=== PATIENT | female | born 1950 | race Caucasian/White ===

== ENCOUNTER 2022-08-01 10:52 | Inpatient (IN) | payer MEDICAID, MEDICARE ==
[~2022-08-01] VITALS: Ht 160 cm; Wt 60.8 kg
[2022-08-01 11:02] VITALS: BP_SYST 146
[2022-08-01 11:29] LABS: BASOPHILS # (AUTO) 0.1 K/uL (0.0-0.2); BASOPHILS % (AUTO) 0.7 % (0.0-2.0); EOSINOPHILS # (AUTO) 0.2 K/uL (0.0-0.4); EOSINOPHILS % (AUTO) 1.7 % (0.0-4.0); HEMATOCRIT 34.4 % (36-48); LYMPHOCYTES # (AUTO) 1.3 K/uL (1.0-5.5); LYMPHOCYTES % (AUTO) 13.5 % (20.5-51.5); MEAN CORPUSCULAR VOLUME 84 fL (79.0-98.0); MONOCYTES # (AUTO) 0.9 K/uL (0.0-1.0); MONOCYTES % (AUTO) 9.5 % (1.7-9.3); NEUTROPHILS % (AUTO) 74.6 % (40.0-70.0); PLATELET COUNT (AUTO) 528 K/uL (130-430); RED BLOOD CELL COUNT(AUTO) 4.11 MIL/uL (4.2-6.2); WHITE BLOOD COUNT (AUTO) 9.4 K/uL (4.8-10.8)
[2022-08-01 11:52] LABS: ANION GAP 7 (5-15); CALCIUM 8.3 mg/dL (8.4-11.0); CHLORIDE 96 mmol/L (98-107); CREATININE 0.49 mg/dL (0.55-1.30); GLUCOSE 130 mg/dL (70-99); UREA NITROGEN, BLOOD 12 mg/dL (8-21)
[2022-08-01 11:56] LABS: POTASSIUM 2.9 mmol/L (3.5-5.1)
[2022-08-01] MEDS ORDERED: MVI,5VIA6 IV (11:56)
[2022-08-01] MEDS ORDERED: VITD2000 PO (11:56)
[2022-08-01] MEDS ORDERED: CILO100T PO (11:56)
[2022-08-01] MEDS ORDERED: METH-373 PO (11:56)
[2022-08-01] MEDS ORDERED: PRO40 PO (11:56)
[2022-08-01] MEDS ORDERED: CAT1PAT TD (11:56)
[2022-08-01] MEDS ORDERED: ASCO500T20 PO (11:56)
[2022-08-01] MEDS ORDERED: [UNRECOGNIZED DRUG - CODE] PO (11:56)
[2022-08-01] MEDS ORDERED: CARV12.548 PO (11:56)
[2022-08-01] MEDS ORDERED: METO25TA6 PO (11:56)
[2022-08-01] MEDS ORDERED: SSNOVOLOG SUBCUT (11:58)
[2022-08-01 12:02] LABS: ALANINE AMINOTRANSFERASE 103 U/L (12-78); ALBUMIN 2.2 g/dL (3.4-4.8); ASPARTATE AMINOTRANSFERASE 81 U/L (10-37); TOTAL BILIRUBIN 0.7 mg/dL (0.0-1.0)
[2022-08-01 12:45] LABS: ACETONE, SERUM NEGATIVE (NEGATIVE)
[2022-08-01] MEDS ORDERED: INSULIN ASPART 100 UNITS/ML, 10 ML VIAL (NovoLOG) SUBCUT PRN ×2 (14:30→15:00)
[2022-08-01] MEDS ORDERED: NACL 0.9% 1,000 ML IV ONE (14:30)
[2022-08-01] MEDS ORDERED: KCL 20 mEq in 100 mL (PREMIX) 100 ML IV ONE (14:30)
[2022-08-01] MEDS ORDERED: GLUCOSE (DEXTROSE) ORAL GEL -Adults PO PRN (15:00)
[2022-08-01] MEDS ORDERED: DEXTROSE 50%-WATER 50 ML DISP.SYRIN IVP PRN (15:00)
[2022-08-01] MEDS ORDERED: D5W 1,000 ML IV PRN (15:00)
[2022-08-01 17:43] VITALS: BP_SYST 147
[2022-08-01 19:55] VITALS: BP_SYST 128
[2022-08-01] MEDS ORDERED: KCL 20 mEq in D5/0.45NS 1000mL 1,000 ML IV ONE (22:15)
[2022-08-01] MEDS: CILOSTAZOL 50 MG TABLET (PLETAL) PO SCH (22:20)
[2022-08-01] MEDS: KCL 20 mEq in D5/0.45NS 1000mL 1,000 ML IV SCH (22:21)
[2022-08-01] MEDS: METOPROLOL TARTRATE 25 MG TABLET PO SCH (22:21)
[2022-08-02 01:11] VITALS: BP_SYST 150
[2022-08-02 08:00] VITALS: BP_SYST 117
[2022-08-02 08:50] LABS: BASOPHILS # (AUTO) 0.1 K/uL (0.0-0.2); BASOPHILS % (AUTO) 0.7 % (0.0-2.0); EOSINOPHILS # (AUTO) 0.2 K/uL (0.0-0.4); EOSINOPHILS % (AUTO) 1.9 % (0.0-4.0); HEMATOCRIT 33.1 % (36-48); LYMPHOCYTES # (AUTO) 1.7 K/uL (1.0-5.5); LYMPHOCYTES % (AUTO) 18.1 % (20.5-51.5); MEAN CORPUSCULAR VOLUME 84 fL (79.0-98.0); MONOCYTES # (AUTO) 1.2 K/uL (0.0-1.0); MONOCYTES % (AUTO) 12.6 % (1.7-9.3); NEUTROPHILS # (AUTO) 6.3 K/uL (1.8-7.7); NEUTROPHILS % (AUTO) 66.7 % (40.0-70.0); PLATELET COUNT (AUTO) 504 K/uL (130-430); RED BLOOD CELL COUNT(AUTO) 3.95 MIL/uL (4.2-6.2); RED CELL DISTRIBUTION WIDTH 14.2 % (9.0-15.0); WHITE BLOOD COUNT (AUTO) 9.4 K/uL (4.8-10.8)
[2022-08-02] MEDS: CHOLECALCIFEROL (VITAMIN D3) 2,000 UNIT TABLET PO SCH (09:00)
[2022-08-02] MEDS ORDERED: methIMAzole 5 MG TABLET PO SCH (09:00)
[2022-08-02] MEDS: MULTIVITS,CA,MINERALS/IRON/FA 1 TABLET PO SCH (09:00)
[2022-08-02] MEDS: methIMAzole 5 MG TABLET PO SCH (09:00)
[2022-08-02] MEDS: PANTOPRAZOLE SODIUM 40 MG TAB PO SCH (09:00)
[2022-08-02] MEDS ORDERED: ASCORBIC ACID 500 MG TABLET PO SCH (09:00)
[2022-08-02] MEDS: CILOSTAZOL 50 MG TABLET (PLETAL) PO SCH ×2 (09:02→21:07)
[2022-08-02] MEDS: METOPROLOL TARTRATE 25 MG TABLET PO SCH (09:04)
[2022-08-02 09:22] LABS: ALANINE AMINOTRANSFERASE 73 U/L (12-78); ALBUMIN 2.2 g/dL (3.4-4.8); ANION GAP 7 (5-15); ASPARTATE AMINOTRANSFERASE 39 U/L (10-37); CALCIUM 8.3 mg/dL (8.4-11.0); CHLORIDE 99 mmol/L (98-107); GLUCOSE 136 mg/dL (70-99); THYROID STIMULATING HORMONE 0.06 uIu/mL (0.36-3.74); TOTAL BILIRUBIN 0.7 mg/dL (0.0-1.0); UREA NITROGEN, BLOOD 10 mg/dL (8-21)
[2022-08-02 09:34] LABS: POTASSIUM 2.8 mmol/L (3.5-5.1)
[2022-08-02] MEDS ORDERED: KCL 40 mEq in 100 mL (PREMIX) 100 ML IV ONE (09:45)
[2022-08-02] MEDS: POTASSIUM CHLORIDE 20 mEq in 100 mL (PREMIX) 100 ML x 2 doses IV SCH ×2 (10:36→14:50)
[2022-08-02 12:00] VITALS: BP_SYST 156
[2022-08-02] MEDS ORDERED: CILOSTAZOL 50 MG TABLET (PLETAL) PO SCH (12:55)
[2022-08-02] MEDS ORDERED: METH-374 PO (13:05)
[2022-08-02] MEDS ORDERED: CLON0.1T PO (13:05)
[2022-08-02] MEDS ORDERED: CILO50TA PO (13:05)
[2022-08-02] MEDS ORDERED: MULT-1145 PO (13:05)
[2022-08-02 16:00] VITALS: BP_SYST 144
[2022-08-02 16:23] LABS: FREE T4 (FREE THYROXINE) 1.6 ng/dl (0.8-1.5); THYROID STIMULATING HORMONE 0.06 uIu/mL (0.36-3.74)
[2022-08-02 19:56] VITALS: BP_SYST 141
[2022-08-02] MEDS: ASCORBIC ACID 500 MG TABLET PO SCH (21:08)
[2022-08-02] MEDS: KCL 20 mEq in D5/0.45NS 1000mL 1,000 ML IV SCH (21:12)
[2022-08-02] MEDS: INSULIN REGULAR, HUMAN 100 UNITS/ML, 3 ML VIAL (humuLIN R) SUBCUT PRN (21:15)
[2022-08-03 00:55] VITALS: BP_SYST 163
[2022-08-03 08:14] LABS: PROTHROMBIN TIME 10.5 SECS (9.5-12.5)
[2022-08-03 08:19] VITALS: BP_SYST 167
[2022-08-03] MEDS: CARVEDILOL 12.5 MG TABLET (COREG) PO SCH (08:34)
[2022-08-03] MEDS: CHOLECALCIFEROL (VITAMIN D3) 2,000 UNIT TABLET PO SCH (08:34)
[2022-08-03] MEDS: PANTOPRAZOLE SODIUM 40 MG TAB PO SCH (08:34)
[2022-08-03] MEDS: MULTIVITS,CA,MINERALS/IRON/FA 1 TABLET PO SCH (08:34)
[2022-08-03] MEDS: ASCORBIC ACID 500 MG TABLET PO SCH ×2 (08:34→22:01)
[2022-08-03] MEDS: CILOSTAZOL 50 MG TABLET (PLETAL) PO SCH ×2 (08:35→22:01)
[2022-08-03] MEDS: methIMAzole 5 MG TABLET PO SCH (08:40)
[2022-08-03 08:47] LABS: ALBUMIN 2.3 g/dL (3.4-4.8); BILIRUBIN,DIRECT 0.3 mg/dL (0.0-0.3); TOTAL BILIRUBIN 0.5 mg/dL (0.0-1.0)
[2022-08-03] MEDS ORDERED: cloNIDine HCL 0.1 MG TABLET PO PRN (09:00)
[2022-08-03 10:06] LABS: HEPATITIS A AB, IgM Negative (Negative); HEPATITIS B CORE AB, IgM Negative (Negative); HEPATITIS B SURFACE AG Negative (Negative)
[2022-08-03] MEDS: KCL 20 mEq in D5/0.45NS 1000mL 1,000 ML IV SCH (11:24)
[2022-08-03 12:00] VITALS: BP_SYST 139; BP_SYST 89
[2022-08-03] MEDS: INSULIN REGULAR, HUMAN 100 UNITS/ML, 3 ML VIAL (humuLIN R) SUBCUT PRN ×2 (12:31→22:05)
[2022-08-03 16:00] VITALS: BP_SYST 144
[2022-08-03 21:20] VITALS: BP_SYST 132
[2022-08-04 01:52] VITALS: BP_SYST 155
[2022-08-04 06:31] LABS: INR 0.9 (0.8-1.2); PROTHROMBIN TIME 9.6 SECS (9.5-12.5)
[2022-08-04] MEDS: KCL 20 mEq in D5/0.45NS 1000mL 1,000 ML IV SCH (06:39)
[2022-08-04] MEDS ORDERED: CEFAZOLIN 1 GM IVPB PREMIX 50 ML IV ONE (07:00)
[2022-08-04 07:46] LABS: BASOPHILS # (AUTO) 0.1 K/uL (0.0-0.2); BASOPHILS % (AUTO) 0.7 % (0.0-2.0); EOSINOPHILS # (AUTO) 0.3 K/uL (0.0-0.4); EOSINOPHILS % (AUTO) 2.2 % (0.0-4.0); HEMATOCRIT 34.8 % (36-48); LYMPHOCYTES # (AUTO) 2.1 K/uL (1.0-5.5); LYMPHOCYTES % (AUTO) 18.2 % (20.5-51.5); MEAN CORPUSCULAR VOLUME 85 fL (79.0-98.0); MONOCYTES # (AUTO) 1.3 K/uL (0.0-1.0); MONOCYTES % (AUTO) 11.4 % (1.7-9.3); NEUTROPHILS # (AUTO) 7.6 K/uL (1.8-7.7); NEUTROPHILS % (AUTO) 67.5 % (40.0-70.0); PLATELET COUNT (AUTO) 538 K/uL (130-430); RED BLOOD CELL COUNT(AUTO) 4.11 MIL/uL (4.2-6.2); RED CELL DISTRIBUTION WIDTH 14.4 % (9.0-15.0); WHITE BLOOD COUNT (AUTO) 11.3 K/uL (4.8-10.8)
[2022-08-04 08:21] VITALS: BP_SYST 139
[2022-08-04] MEDS: CHOLECALCIFEROL (VITAMIN D3) 2,000 UNIT TABLET PO SCH (10:21)
[2022-08-04] MEDS: MULTIVITS,CA,MINERALS/IRON/FA 1 TABLET PO SCH (10:21)
[2022-08-04] MEDS: CILOSTAZOL 50 MG TABLET (PLETAL) PO SCH ×2 (10:21→21:54)
[2022-08-04] MEDS: ASCORBIC ACID 500 MG TABLET PO SCH ×2 (10:21→21:54)
[2022-08-04] MEDS: PANTOPRAZOLE SODIUM 40 MG TAB PO SCH (10:21)
[2022-08-04] MEDS: CARVEDILOL 12.5 MG TABLET (COREG) PO SCH (10:48)
[2022-08-04] MEDS: methIMAzole 5 MG TABLET PO SCH (11:22)
[2022-08-04 12:30] VITALS: BP_SYST 145
[2022-08-04 18:31] VITALS: BP_SYST 141
[2022-08-04 20:00] VITALS: BP_SYST 134
[2022-08-05] MEDS: KCL 20 mEq in D5/0.45NS 1000mL 1,000 ML IV SCH ×2 (00:14→23:12)
[2022-08-05 00:51] VITALS: BP_SYST 155
[2022-08-05 06:52] LABS: BASOPHILS # (AUTO) 0.1 K/uL (0.0-0.2); BASOPHILS % (AUTO) 0.7 % (0.0-2.0); EOSINOPHILS # (AUTO) 0.1 K/uL (0.0-0.4); EOSINOPHILS % (AUTO) 1.4 % (0.0-4.0); HEMATOCRIT 33.6 % (36-48); LYMPHOCYTES # (AUTO) 1.8 K/uL (1.0-5.5); LYMPHOCYTES % (AUTO) 17.6 % (20.5-51.5); MEAN CORPUSCULAR VOLUME 86 fL (79.0-98.0); MONOCYTES # (AUTO) 1.1 K/uL (0.0-1.0); MONOCYTES % (AUTO) 10.4 % (1.7-9.3); NEUTROPHILS # (AUTO) 7.3 K/uL (1.8-7.7); NEUTROPHILS % (AUTO) 69.9 % (40.0-70.0); PLATELET COUNT (AUTO) 510 K/uL (130-430); RED BLOOD CELL COUNT(AUTO) 3.92 MIL/uL (4.2-6.2); RED CELL DISTRIBUTION WIDTH 14.3 % (9.0-15.0); WHITE BLOOD COUNT (AUTO) 10.5 K/uL (4.8-10.8)
[2022-08-05 07:33] LABS: ALANINE AMINOTRANSFERASE 35 U/L (12-78); ALBUMIN 2.3 g/dL (3.4-4.8); ANION GAP 8 (5-15); ASPARTATE AMINOTRANSFERASE 26 U/L (10-37); CALCIUM 8.9 mg/dL (8.4-11.0); CHLORIDE 104 mmol/L (98-107); CREATININE 0.51 mg/dL (0.55-1.30); GLUCOSE 151 mg/dL (70-99); POTASSIUM 3.7 mmol/L (3.5-5.1); TOTAL BILIRUBIN 0.6 mg/dL (0.0-1.0); UREA NITROGEN, BLOOD 13 mg/dL (8-21)
[2022-08-05 07:38] LABS: PROTHROMBIN TIME 10.7 SECS (9.5-12.5)
[2022-08-05 08:30] VITALS: BP_SYST 160
[2022-08-05] MEDS: MULTIVITS,CA,MINERALS/IRON/FA 1 TABLET PO SCH (09:00)
[2022-08-05] MEDS ORDERED: MEPERIDINE 100 MG INJ. 100 MG/ML VIAL ONE (09:00)
[2022-08-05] MEDS: PANTOPRAZOLE SODIUM 40 MG TAB PO SCH (09:00)
[2022-08-05] MEDS: CARVEDILOL 12.5 MG TABLET (COREG) PO SCH (09:00)
[2022-08-05] MEDS: methIMAzole 5 MG TABLET PO SCH (09:00)
[2022-08-05] MEDS: CILOSTAZOL 50 MG TABLET (PLETAL) PO SCH ×2 (09:00→21:00)
[2022-08-05] MEDS: ASCORBIC ACID 500 MG TABLET PO SCH ×2 (09:00→21:00)
[2022-08-05] MEDS: CHOLECALCIFEROL (VITAMIN D3) 2,000 UNIT TABLET PO SCH (09:00)
[2022-08-05] MEDS: MIDAZOLAM HCL 5 MG/5 ML VIAL ONE (09:00)
[2022-08-05] MEDS ORDERED: metroNIDAZOLE 500 mg/NS 100 ML IV ONE (13:00)
[2022-08-05 13:03] VITALS: BP_SYST 165
[2022-08-05] MEDS: cefTRIAXone 1 GM in D5W 50 ML IV SCH (13:16)
[2022-08-05 16:00] VITALS: BP_SYST 155
[2022-08-05 16:56] LABS: BILIRUBIN,URINE NEGATIVE (NEGATIVE); BLOOD, URINE NEGATIVE (NEGATIVE); CLARITY/URINE CLEAR (CLEAR); COLOR,URINE YELLOW (YELLOW); GLUCOSE,URINE NEGATIVE (NEGATIVE); KETONES,URINE NEGATIVE (NEGATIVE); LEUKOCYTE ESTERASE ,URINE NEGATIVE (NEGATIVE); NITRITE, URINE NEGATIVE (NEGATIVE); PROTEIN URINE TRACE (NEGATIVE)
[2022-08-05 18:50] VITALS: BP_SYST 144
[2022-08-05] MEDS ORDERED: levalbuterol HCL 0.63 MG/3 ML VIAL.NEB INH PRN (19:30)
[2022-08-05 20:00] VITALS: BP_SYST 138
[2022-08-05] MEDS: metroNIDAZOLE 500 mg/NS 100 ML IV SCH (21:00)
[2022-08-06 01:19] VITALS: BP_SYST 163
[2022-08-06 07:32] LABS: BASOPHILS # (AUTO) 0.1 K/uL (0.0-0.2); BASOPHILS % (AUTO) 0.9 % (0.0-2.0); EOSINOPHILS # (AUTO) 0.2 K/uL (0.0-0.4); EOSINOPHILS % (AUTO) 1.6 % (0.0-4.0); HEMATOCRIT 32.6 % (36-48); HEMOGLOBIN 10.9 g/dL (12.0-16.0); LYMPHOCYTES # (AUTO) 1.6 K/uL (1.0-5.5); LYMPHOCYTES % (AUTO) 15.8 % (20.5-51.5); MEAN CORPUSCULAR HEMOGLOBIN 29 pg (27-31); MEAN CORPUSCULAR HGB CONC 34 % (32-36); MEAN CORPUSCULAR VOLUME 85 fL (79.0-98.0); MONOCYTES # (AUTO) 1.3 K/uL (0.0-1.0); NEUTROPHILS # (AUTO) 7.2 K/uL (1.8-7.7); NEUTROPHILS % (AUTO) 69.7 % (40.0-70.0); PLATELET COUNT (AUTO) 431 K/uL (130-430); RED BLOOD CELL COUNT(AUTO) 3.83 MIL/uL (4.2-6.2); WHITE BLOOD COUNT (AUTO) 10.4 K/uL (4.8-10.8)
[2022-08-06] MEDS ORDERED: MIDAZOLAM HCL 5 MG/5 ML VIAL ONE (07:39)
[2022-08-06] MEDS ORDERED: fentaNYL CITRATE/PF 100 MCG/2 ML AMP ONE (07:39)
[2022-08-06] MEDS: MIDAZOLAM HCL 5 MG/5 ML VIAL ONE (08:28)
[2022-08-06] MEDS: CILOSTAZOL 50 MG TABLET (PLETAL) PO SCH ×3 (09:00→21:47)
[2022-08-06] MEDS: MULTIVITS,CA,MINERALS/IRON/FA 1 TABLET PO SCH (09:00)
[2022-08-06] MEDS: ASCORBIC ACID 500 MG TABLET PO SCH ×2 (09:00→21:47)
[2022-08-06] MEDS: PANTOPRAZOLE SODIUM 40 MG TAB PO SCH (09:00)
[2022-08-06] MEDS: methIMAzole 5 MG TABLET PO SCH (09:00)
[2022-08-06] MEDS: CARVEDILOL 12.5 MG TABLET (COREG) PO SCH (09:00)
[2022-08-06] MEDS: CHOLECALCIFEROL (VITAMIN D3) 2,000 UNIT TABLET PO SCH (09:00)
[2022-08-06 09:17] LABS: ALANINE AMINOTRANSFERASE 26 U/L (12-78); ANION GAP 7 (5-15); ASPARTATE AMINOTRANSFERASE 18 U/L (10-37); CHLORIDE 105 mmol/L (98-107); CREATININE 0.49 mg/dL (0.55-1.30); GLUCOSE 134 mg/dL (70-99); POTASSIUM 3.3 mmol/L (3.5-5.1); TOTAL BILIRUBIN 0.7 mg/dL (0.0-1.0); UREA NITROGEN, BLOOD 11 mg/dL (8-21)
[2022-08-06 09:18] VITALS: BP_SYST 144
[2022-08-06 09:18] LABS: LIPASE 62 U/L (73-393)
[2022-08-06] MEDS: metroNIDAZOLE 500 mg/NS 100 ML IV SCH ×2 (13:04→21:48)
[2022-08-06] MEDS: cefTRIAXone 1 GM in D5W 50 ML IV SCH (13:04)
[2022-08-06 13:45] VITALS: BP_SYST 137
[2022-08-06] MEDS: INSULIN REGULAR, HUMAN 100 UNITS/ML, 3 ML VIAL (humuLIN R) SUBCUT PRN (17:38)
[2022-08-06 18:22] VITALS: BP_SYST 102
[2022-08-06] MEDS: KCL 20 mEq in D5/0.45NS 1000mL 1,000 ML IV SCH (19:24)
[2022-08-06 20:00] VITALS: BP_SYST 173
[2022-08-07 01:49] VITALS: BP_SYST 185
[2022-08-07 04:05] VITALS: BP_SYST 157
[2022-08-07 06:55] LABS: ANION GAP 7 (5-15); CHLORIDE 104 mmol/L (98-107); CREATININE 0.49 mg/dL (0.55-1.30); GLUCOSE 168 mg/dL (70-99); UREA NITROGEN, BLOOD 12 mg/dL (8-21)
[2022-08-07 07:09] LABS: BASOPHILS # (AUTO) 0.1 K/uL (0.0-0.2); BASOPHILS % (AUTO) 0.5 % (0.0-2.0); EOSINOPHILS # (AUTO) 0.2 K/uL (0.0-0.4); HEMATOCRIT 32.4 % (36-48); HEMOGLOBIN 10.6 g/dL (12.0-16.0); LYMPHOCYTES # (AUTO) 1.6 K/uL (1.0-5.5); LYMPHOCYTES % (AUTO) 14.4 % (20.5-51.5); MEAN CORPUSCULAR HEMOGLOBIN 28 pg (27-31); MEAN CORPUSCULAR HGB CONC 33 % (32-36); MEAN CORPUSCULAR VOLUME 86 fL (79.0-98.0); MONOCYTES # (AUTO) 1.2 K/uL (0.0-1.0); MONOCYTES % (AUTO) 10.6 % (1.7-9.3); NEUTROPHILS # (AUTO) 8.1 K/uL (1.8-7.7); NEUTROPHILS % (AUTO) 72.5 % (40.0-70.0); PLATELET COUNT (AUTO) 443 K/uL (130-430); RED BLOOD CELL COUNT(AUTO) 3.77 MIL/uL (4.2-6.2); RED CELL DISTRIBUTION WIDTH 14.5 % (9.0-15.0); WHITE BLOOD COUNT (AUTO) 11.2 K/uL (4.8-10.8)
[2022-08-07 08:30] VITALS: BP_SYST 139
[2022-08-07 08:34] LABS: POTASSIUM 2.9 mmol/L (3.5-5.1)
[2022-08-07] MEDS ORDERED: POTASSIUM CHLORIDE 20 MEQ/PKT PACKET GT ONE (08:45)
[2022-08-07] MEDS: PANTOPRAZOLE SODIUM 40 MG TAB PO SCH (08:48)
[2022-08-07] MEDS: ASCORBIC ACID 500 MG TABLET GT SCH ×2 (09:04→21:29)
[2022-08-07] MEDS: BALSAM PERU/CASTOR OIL 56.7 GM OINT...G. TP SCH (09:04)
[2022-08-07] MEDS: metroNIDAZOLE 500 mg/NS 100 ML IV SCH ×2 (09:04→21:29)
[2022-08-07] MEDS: methIMAzole 5 MG TABLET GT SCH (09:05)
[2022-08-07] MEDS: CILOSTAZOL 50 MG TABLET (PLETAL) GT SCH ×2 (09:05→21:30)
[2022-08-07] MEDS: CARVEDILOL 12.5 MG TABLET (COREG) GT SCH (09:05)
[2022-08-07] MEDS: MULTIVITS,CA,MINERALS/IRON/FA 1 TABLET GT SCH (09:05)
[2022-08-07] MEDS: CHOLECALCIFEROL (VITAMIN D3) 2,000 UNIT TABLET GT SCH (09:06)
[2022-08-07] MEDS: INSULIN REGULAR, HUMAN 100 UNITS/ML, 3 ML VIAL (humuLIN R) SUBCUT PRN ×2 (11:57→17:33)
[2022-08-07] MEDS: cefTRIAXone 1 GM in D5W 50 ML IV SCH (12:26)
[2022-08-07 13:26] VITALS: BP_SYST 138
[2022-08-07] MEDS: KCL 20 mEq in D5/0.45NS 1000mL 1,000 ML IV SCH (14:29)
[2022-08-07 18:44] VITALS: BP_SYST 55
[2022-08-07 20:00] VITALS: BP_SYST 167
[2022-08-08 00:29] VITALS: BP_SYST 159
[2022-08-08] MEDS: KCL 20 mEq in D5/0.45NS 1000mL 1,000 ML IV SCH (06:00)
[2022-08-08] MEDS: INSULIN REGULAR, HUMAN 100 UNITS/ML, 3 ML VIAL (humuLIN R) SUBCUT PRN ×3 (06:33→17:27)
[2022-08-08 06:57] LABS: BASOPHILS % (AUTO) 0.5 % (0.0-2.0); EOSINOPHILS # (AUTO) 0.4 K/uL (0.0-0.4); EOSINOPHILS % (AUTO) 3.8 % (0.0-4.0); HEMATOCRIT 33.3 % (36-48); HEMOGLOBIN 11.1 g/dL (12.0-16.0); LYMPHOCYTES # (AUTO) 1.6 K/uL (1.0-5.5); LYMPHOCYTES % (AUTO) 15.2 % (20.5-51.5); MEAN CORPUSCULAR HEMOGLOBIN 28 pg (27-31); MEAN CORPUSCULAR HGB CONC 33 % (32-36); MEAN CORPUSCULAR VOLUME 85 fL (79.0-98.0); MONOCYTES % (AUTO) 9.8 % (1.7-9.3); NEUTROPHILS # (AUTO) 7.4 K/uL (1.8-7.7); NEUTROPHILS % (AUTO) 70.7 % (40.0-70.0); PLATELET COUNT (AUTO) 455 K/uL (130-430); RED BLOOD CELL COUNT(AUTO) 3.91 MIL/uL (4.2-6.2); RED CELL DISTRIBUTION WIDTH 14.5 % (9.0-15.0); WHITE BLOOD COUNT (AUTO) 10.5 K/uL (4.8-10.8)
[2022-08-08 08:00] VITALS: BP_SYST 161
[2022-08-08 08:00] LABS: ALANINE AMINOTRANSFERASE 14 U/L (12-78); ALBUMIN 1.9 g/dL (3.4-4.8); ANION GAP 6 (5-15); ASPARTATE AMINOTRANSFERASE 15 U/L (10-37); CALCIUM 8.4 mg/dL (8.4-11.0); CHLORIDE 102 mmol/L (98-107); CREATININE 0.55 mg/dL (0.55-1.30); GLUCOSE 235 mg/dL (70-99); POTASSIUM 3.9 mmol/L (3.5-5.1); TOTAL BILIRUBIN 0.4 mg/dL (0.0-1.0); UREA NITROGEN, BLOOD 12 mg/dL (8-21)
[2022-08-08] MEDS: PANTOPRAZOLE SODIUM 40 MG TAB PO SCH (09:46)
[2022-08-08] MEDS: metroNIDAZOLE 500 mg/NS 100 ML IV SCH ×2 (09:46→23:15)
[2022-08-08] MEDS: MULTIVITS,CA,MINERALS/IRON/FA 1 TABLET GT SCH (09:47)
[2022-08-08] MEDS: CARVEDILOL 12.5 MG TABLET (COREG) GT SCH (09:47)
[2022-08-08] MEDS: CHOLECALCIFEROL (VITAMIN D3) 2,000 UNIT TABLET GT SCH (09:47)
[2022-08-08] MEDS: ASCORBIC ACID 500 MG TABLET GT SCH ×2 (09:47→23:15)
[2022-08-08] MEDS: CILOSTAZOL 50 MG TABLET (PLETAL) GT SCH ×2 (09:47→23:15)
[2022-08-08] MEDS: methIMAzole 5 MG TABLET GT SCH (09:48)
[2022-08-08] MEDS: BALSAM PERU/CASTOR OIL 56.7 GM OINT...G. TP SCH (09:49)
[2022-08-08 12:31] VITALS: BP_SYST 120
[2022-08-08] MEDS: cefTRIAXone 1 GM in D5W 50 ML IV SCH (13:29)
[2022-08-08 16:00] VITALS: BP_SYST 148
[2022-08-08] MEDS ORDERED: LEVO750T64 PO (18:58)
[2022-08-08 20:00] VITALS: BP_SYST 143
[2022-08-09 04:38] VITALS: BP_SYST 146
[2022-08-09] MEDS: INSULIN REGULAR, HUMAN 100 UNITS/ML, 3 ML VIAL (humuLIN R) SUBCUT PRN ×2 (06:40→12:29)
[2022-08-09 08:00] VITALS: BP_SYST 135
[2022-08-09 09:19] VITALS: BP_SYST 146
[2022-08-09] MEDS: metroNIDAZOLE 500 mg/NS 100 ML IV SCH (09:24)
[2022-08-09] MEDS: CARVEDILOL 12.5 MG TABLET (COREG) GT SCH (09:24)
[2022-08-09] MEDS: CHOLECALCIFEROL (VITAMIN D3) 2,000 UNIT TABLET GT SCH (09:24)
[2022-08-09] MEDS: MULTIVITS,CA,MINERALS/IRON/FA 1 TABLET GT SCH (09:24)
[2022-08-09] MEDS: methIMAzole 5 MG TABLET GT SCH (09:25)
[2022-08-09] MEDS: PANTOPRAZOLE SODIUM 40 MG TAB PO SCH (09:25)
[2022-08-09] MEDS: CILOSTAZOL 50 MG TABLET (PLETAL) GT SCH (09:25)
[2022-08-09] MEDS: ASCORBIC ACID 500 MG TABLET GT SCH (09:25)
[2022-08-09 11:35] VITALS: BP_SYST 135
[2022-08-09 11:55] VITALS: BP_SYST 134
[2022-08-09 12:00] VITALS: BP_SYST 34
[2022-08-09] MEDS: cefTRIAXone 1 GM in D5W 50 ML IV SCH (14:29)
[2022-08-09] MEDS: BALSAM PERU/CASTOR OIL 56.7 GM OINT...G. TP SCH (14:31)
== END 2022-08-09 15:25 | DRG 45 ==
LOC: SED 10:52 → SMU 15:26 → STU 17:13 → SMU 18:16 → STU 08-05 12:25
PROVIDERS: ADMIT Internal Medicine Infectious Disease; ATTEND Internal Medicine
PROC: 0DH68UZ Insertion of Feeding Device into Stomach, Via Natural or Artificial Opening Endoscopic (ICD-10-PCS; 2022-08-06)
PROC: 3E0G76Z Introduction of Nutritional Substance into Upper GI, Via Natural or Artificial Opening (ICD-10-PCS; 2022-08-06)
PROC: 0DJ08ZZ Inspection of Upper Intestinal Tract, Via Natural or Artificial Opening Endoscopic (ICD-10-PCS; principal; 2022-08-06 09:40)
DX: I63.9 Cerebral infarction, unspecified (principal); L89.154 Pressure ulcer of sacral region, stage 4; E43 Unspecified severe protein-calorie malnutrition; E11.51 Type 2 diabetes mellitus with diabetic peripheral angiopathy without gangrene; I48.91 Unspecified atrial fibrillation; R62.7 Adult failure to thrive; E87.6 Hypokalemia; K21.9 Gastro-esophageal reflux disease without esophagitis; L89.609 Pressure ulcer of unspecified heel, unspecified stage; E03.9 Hypothyroidism, unspecified; Z20.822 Contact with and (suspected) exposure to COVID-19; E78.5 Hyperlipidemia, unspecified; E05.90 Thyrotoxicosis, unspecified without thyrotoxic crisis or storm; I25.10 Atherosclerotic heart disease of native coronary artery without angina pectoris; I10 Essential (primary) hypertension; R13.10 Dysphagia, unspecified; Z74.01 Bed confinement status; Z86.711 Personal history of pulmonary embolism; Z86.718 Personal history of other venous thrombosis and embolism; Z68.23 Body mass index [BMI] 23.0-23.9, adult; Z88.6 Allergy status to analgesic agent; Z88.5 Allergy status to narcotic agent; Z85.3 Personal history of malignant neoplasm of breast; G81.91 Hemiplegia, unspecified affecting right dominant side
CPT/HCPCS: 36415; 36600; 43246; 71045; 76700-TC; 78226; 80048; 80053; 80074; 80076; 81003; 82009; 82550; 82803-TC; 82962; 83605; 83690; 83735; 84439; 84443; 84484; 85025; 85610-TC; 85730-TC; 87040; 87081; 87086; 87230-TC; 93005; 93306; 93970; 94760; 99285; A9537; G0378; J0690; J0696; J1815; J2175; J2250; J3010; J3480; J3490; J7060